=== PATIENT | female | born 1945 | race Caucasian/White ===

== ENCOUNTER → 2016-05-12 | Outpatient (CLI) | payer MEDICARE, BC ==
--- NOTE | 2016-05-12 15:35 | XCELERA REPORT ---
[address] [address] Lower Extremity Venous Evaluation Name: SANDRA POST Age: 71 yrs Gender: Female : 1945 Patient Status: Outpatient Patient Location: Study Date: 05/12/2016 01:36 PM Procedure: Color flow and duplex imaging bilaterally of the veins of the lower extremities as well as the Common Femoral veins. Reason For Study: BLE PAIN / SWELLING Ordering Physician: ELZA VALVERDE Performed By: Christ Whittington Right Sided Venous Evaluation Abnormal filling, reduced flow and compression in both peroneal veins, mid to distal. Otherwise normal vessel filling wall to wall, compression and augmentation as well as Colour flow down to the infrageniculate veins. Left Sided Venous Evaluation Normal vessel filling wall to wall, compression and augmentation as well as Colour flow down to the infrageniculate veins. Critical Findings Discussed with Dr Valverde at about 1430. 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 : ELZA VALVERDE > Edwin Osorio
== END ==
LOC: SP 13:22
PROVIDERS: ATTEND Internal Medicine
DX: M79.89 Other specified soft tissue disorders (principal)
CPT/HCPCS: 93970

== ENCOUNTER → 2016-05-26 | Outpatient (CLI) | payer MEDICARE, BC | LOC: RAD 08:32 | PROVIDERS: ATTEND Internal Medicine | DX: F03.90 Unspecified dementia, unspecified severity, without behavioral disturbance, psychotic disturbance, mood disturbance, and anxiety (principal) | CPT/HCPCS: 70470; 82565 ==